=== PATIENT | female | born 1960 | race Caucasian/White ===

== ENCOUNTER 2023-01-28 17:45 | Outpatient (REF) | payer OTHER, SELFPAY | END 2023-01-28 17:46 | disposition home or self-care (01) | LOC: NFLDREF 17:45 | PROVIDERS: PCP Family Medicine; Referring Provider Family Medicine; Visit Provider Nurse Practitioner Family | DX: R30.0 Dysuria (principal); N30.00 Acute cystitis without hematuria | CPT/HCPCS: 87086; 87186 ==

== ENCOUNTER 2023-03-03 10:38 | Outpatient (CLI) | payer OTHER, SELFPAY ==
--- NOTE | 2023-03-03 11:00 | CRLHL7_ITS ---
For Patients: As a result of the Century Cures Act, medical imaging exams and procedure reports are released immediately into your electronic medical record. You may view this report before your referring provider. If you have questions, please contact your health care provider. INDICATION: Lower left pelvic pain. Post hysterectomy. TECHNIQUE: Transabdominal and transvaginal scanning was performed. Transvaginal scanning was performed to optimally evaluate the adnexa. Ovarian blood flow was evaluated with color-flow and pulsed Doppler. COMPARISON: None. FINDINGS: The uterus has been removed. The right ovary is not visualized. The left ovary is unremarkable, measuring 2.8 x 2.1 x 2.0 cm. Left ovarian blood flow is demonstrated with color-flow and pulsed Doppler. No adnexal mass is evident. No free fluid is demonstrated. IMPRESSION: 1. Normal left ovary and adnexa. 2. Right ovary not visualized. 3. Post hysterectomy. Dictated by Errol Oswald MD @ 03/04/2023 9:23:03 AM (Electronically Signed)
== END 2023-03-03 10:39 | disposition home or self-care (01) ==
LOC: US 10:39
PROVIDERS: PCP Family Medicine; Visit Provider Obstetrics & Gynecology
DX: R10.2 Pelvic and perineal pain (principal)
CPT/HCPCS: 76830; 76856; 93976

== ENCOUNTER 2023-07-04 10:10 | Outpatient (CLI) | payer OTHER, SELFPAY ==
--- NOTE | 2023-07-04 11:53 | W.ANESCHARGE ---
Anesthesia Charges Start Date/Time Anesthesia Start Date: 07/04/23 Anesthesia Start Time: 11:25 Stop Date/Time Anesthesia Stop Date: 07/04/23 Anesthesia Stop Time: 11:52
--- NOTE | 2023-07-04 11:54 | W.ANESCHARGE ---
Anesthesia Charges Start Date/Time Anesthesia Start Date: 07/04/23 Anesthesia Start Time: 11:25 Stop Date/Time Anesthesia Stop Date: 07/04/23 Anesthesia Stop Time: 11:52
== END 2023-07-04 10:11 | disposition home or self-care (01) ==
LOC: OP CLINIC 10:11
PROVIDERS: PCP Family Medicine; Visit Provider Internal Medicine Gastroenterology
DX: Z12.11 Encounter for screening for malignant neoplasm of colon (principal); K63.5 Polyp of colon
CPT/HCPCS: 00811; 45385; 88305; J2405; J2704

== ENCOUNTER 2025-02-19 10:43 | Outpatient (CLI) | payer MEDICARE, BC, SELFPAY | END 2025-02-19 10:44 | disposition home or self-care (01) | LOC: NFLDREF 02-26 13:48 | PROVIDERS: PCP Family Medicine; Referring Provider Family Medicine; Visit Provider Physician Assistant | DX: N39.0 Urinary tract infection, site not specified (principal); B96.20 Unspecified Escherichia coli [E. coli] as the cause of diseases classified elsewhere | CPT/HCPCS: 87086 ==